=== PATIENT | male | born 1975 | race Caucasian/White ===

== ENCOUNTER 2022-05-21 12:59 | Inpatient (IN) | payer OTHER ==
[2022-05-21 14:15] VITALS: BMI 37.1
[2022-05-21] MEDS ORDERED: MAGNESIUM CITRATE 300 ML BOTTLE PO PRN (15:15)
[2022-05-21] MEDS ORDERED: MAG HYDROX/AL HYDROX/SIMETH 30 ML UNIT-DOSE CUP PO PRN (15:15)
[2022-05-21] MEDS ORDERED: guaiFENesin 200 MG/10 ML 10 ML UNIT-DOSE CUPS PO PRN (15:15)
[2022-05-21] MEDS ORDERED: ACETAMINOPHEN 325 MG TABLET (FP) PO PRN (15:15)
[2022-05-21] MEDS ORDERED: LOPERAMIDE HCL 2 MG CAPSULE PO PRN (15:15)
[2022-05-21] MEDS ORDERED: MAGNESIUM HYDROX 2400MG/30ML ORAL SUSPENSION 30 ML CUP PO PRN (15:15)
[2022-05-21] MEDS: hydrOXYzine PAMOATE 25 MG CAPSULE (FP) PO SCH ×2 (21:19→21:20)
[2022-05-21] MEDS: THIAMINE HCL 100 MG TABLET (FP) PO SCH (21:20)
[2022-05-21] MEDS: MELATONIN 5 MG TABLETS PO SCH (21:20)
[2022-05-21] MEDS ORDERED: TUBERCULIN PPD 5 TU/0.1ML VIAL ID ONE ×2 (21:33→21:40)
[2022-05-22] MEDS ORDERED: methaDONE HCL 10 MG TABLET PO ONE (09:48)
[2022-05-22] MEDS ORDERED: methaDONE 40 MG, methaDONE 10 MG PO ONE (10:15)
[2022-05-22] MEDS ORDERED: methaDONE HCL 40 MG DISPERSABLE TABLET ONE (10:20)
[2022-05-22] MEDS ORDERED: methaDONE HCL 10 MG TABLET ONE (10:20)
[2022-05-22] MEDS: NICOTINE 7 MG/24 HOURS TOPICAL PATCH TD SCH (10:31)
[2022-05-22] MEDS: PRENATAL VITAMINS W/ FOLIC ACID TABLET (FP) PO SCH (10:31)
[2022-05-22 14:23] LABS: HEMATOCRIT 38.7 % (35.4-49); HEMOGLOBIN 13.1 GM/dL (11.7-16.9); MCH 30.4 pg (25.7-33.7); MCHC 33.9 g/dl (32.0-35.9); MEAN CELL VOLUME 89.9 fl (80-96); MEAN PLT VOLUME 8.3 fl (7.5-11.1); PLATELET COUNT 287 10^3/uL (134-434); RDW 12.8 % (11.9-15.9); WHITE BLOOD COUNT 4.8 K/mm3 (4.0-10.0)
[2022-05-22 14:24] LABS: PH,URINE 6.5 (5.0-8.0); URINE APPEARANCE CLEAR; URINE BILIRUBIN NEGATIVE (NEGATIVE); URINE COLOR YELLOW; URINE GLUCOSE (UA) NEGATIVE (NEGATIVE); URINE KETONE NEGATIVE (NEGATIVE); URINE LEUK ESTERASE NEGATIVE (NEGATIVE); URINE NITRITE NEGATIVE (NEGATIVE); URINE PROTEIN NEGATIVE (NEGATIVE); URINE UROBILINOGEN 0.2 mg/dL (0.2-1.0)
[2022-05-22 14:34] LABS: CALCIUM 9.4 mg/dL (8.5-10.1)
[2022-05-22 14:35] LABS: ALBUMIN 3.5 g/dl (3.4-5.0); BLOOD UREA NITROGEN 11.5 mg/dL (7-18)
[2022-05-22 14:38] LABS: CREATININE 1.1 mg/dL (0.55-1.3)
[2022-05-22 14:40] LABS: TOT PROT 7.1 g/dl (6.4-8.2)
[2022-05-22 14:43] LABS: SYPHILIS W/ RPR CONF NON-REACTIVE (NONREACTIVE)
[2022-05-22 14:44] LABS: BILIRUBIN,TOTAL 0.3 mg/dL (0.2-1)
[2022-05-22] MEDS: THIAMINE HCL 100 MG TABLET (FP) PO SCH (21:17)
[2022-05-22] MEDS: MELATONIN 5 MG TABLETS PO SCH (21:17)
[2022-05-23] MEDS ORDERED: methaDONE HCL 10 MG TABLET PO SCH (06:00)
[2022-05-23] MEDS ORDERED: methaDONE HCL 40 MG DISPERSABLE TABLET ONE (06:04)
[2022-05-23] MEDS ORDERED: methaDONE HCL 10 MG TABLET ONE (06:04)
[2022-05-23] MEDS: methaDONE 40 MG, methaDONE 10 MG PO SCH (06:20)
[2022-05-23] MEDS: NICOTINE 7 MG/24 HOURS TOPICAL PATCH TD SCH (09:55)
[2022-05-23] MEDS: PRENATAL VITAMINS W/ FOLIC ACID TABLET (FP) PO SCH (09:56)
[2022-05-23] MEDS: MELATONIN 5 MG TABLETS PO SCH (21:06)
[2022-05-23] MEDS: THIAMINE HCL 100 MG TABLET (FP) PO SCH (21:06)
[2022-05-24] MEDS ORDERED: methaDONE HCL 40 MG DISPERSABLE TABLET ONE (03:20)
[2022-05-24] MEDS ORDERED: methaDONE HCL 10 MG TABLET ONE (03:20)
[2022-05-24] MEDS: methaDONE 40 MG, methaDONE 10 MG PO SCH (06:35)
[2022-05-24] MEDS: PRENATAL VITAMINS W/ FOLIC ACID TABLET (FP) PO SCH (10:20)
[2022-05-24] MEDS: NICOTINE 7 MG/24 HOURS TOPICAL PATCH TD SCH (10:20)
[2022-05-24] MEDS: MELATONIN 5 MG TABLETS PO SCH (21:21)
[2022-05-24] MEDS: THIAMINE HCL 100 MG TABLET (FP) PO SCH (21:21)
[2022-05-25] MEDS ORDERED: methaDONE HCL 40 MG DISPERSABLE TABLET ONE (03:31)
[2022-05-25] MEDS ORDERED: methaDONE HCL 10 MG TABLET ONE (03:31)
[2022-05-25] MEDS: methaDONE 40 MG, methaDONE 10 MG PO SCH (06:30)
[2022-05-25] MEDS: NICOTINE 7 MG/24 HOURS TOPICAL PATCH TD SCH (10:20)
[2022-05-25] MEDS: PRENATAL VITAMINS W/ FOLIC ACID TABLET (FP) PO SCH (10:20)
[2022-05-25] MEDS: THIAMINE HCL 100 MG TABLET (FP) PO SCH (21:09)
[2022-05-25] MEDS: MELATONIN 5 MG TABLETS PO SCH (21:09)
[2022-05-26] MEDS ORDERED: methaDONE HCL 40 MG DISPERSABLE TABLET ONE (03:06)
[2022-05-26] MEDS ORDERED: methaDONE HCL 10 MG TABLET ONE (03:06)
[2022-05-26] MEDS: methaDONE 40 MG, methaDONE 10 MG PO SCH (06:18)
[2022-05-26] MEDS: NICOTINE 7 MG/24 HOURS TOPICAL PATCH TD SCH (10:20)
[2022-05-26] MEDS: PRENATAL VITAMINS W/ FOLIC ACID TABLET (FP) PO SCH (10:20)
[2022-05-26] MEDS: MELATONIN 5 MG TABLETS PO SCH (21:10)
[2022-05-26] MEDS: THIAMINE HCL 100 MG TABLET (FP) PO SCH (21:10)
[2022-05-27] MEDS ORDERED: methaDONE HCL 10 MG TABLET ONE (03:07)
[2022-05-27] MEDS ORDERED: methaDONE HCL 40 MG DISPERSABLE TABLET ONE (03:08)
[2022-05-27] MEDS: methaDONE 40 MG, methaDONE 10 MG PO SCH (06:22)
[2022-05-27] MEDS: PRENATAL VITAMINS W/ FOLIC ACID TABLET (FP) PO SCH (09:51)
[2022-05-27] MEDS: NICOTINE 7 MG/24 HOURS TOPICAL PATCH TD SCH (09:52)
[2022-05-27] MEDS: IBUPROFEN 400 MG TABLET (FP) PO PRN (14:51)
[2022-05-27] MEDS: MELATONIN 5 MG TABLETS PO SCH (21:05)
[2022-05-27] MEDS: THIAMINE HCL 100 MG TABLET (FP) PO SCH (21:05)
[2022-05-27] MEDS: CARBAMIDE PEROXIDE 6.5% OTIC 15 ML BOTTLE AS SCH (21:07)
[2022-05-28] MEDS ORDERED: methaDONE HCL 10 MG TABLET ONE (03:17)
[2022-05-28] MEDS ORDERED: methaDONE HCL 40 MG DISPERSABLE TABLET ONE (03:17)
[2022-05-28] MEDS: methaDONE 40 MG, methaDONE 10 MG PO SCH (06:23)
[2022-05-28] MEDS: CARBAMIDE PEROXIDE 6.5% OTIC 15 ML BOTTLE AS SCH ×2 (10:17→21:10)
[2022-05-28] MEDS: PRENATAL VITAMINS W/ FOLIC ACID TABLET (FP) PO SCH (10:17)
[2022-05-28] MEDS: NICOTINE 7 MG/24 HOURS TOPICAL PATCH TD SCH (10:17)
[2022-05-28] MEDS: MELATONIN 5 MG TABLETS PO SCH (21:10)
[2022-05-28] MEDS: THIAMINE HCL 100 MG TABLET (FP) PO SCH (21:10)
[2022-05-29] MEDS ORDERED: methaDONE HCL 10 MG TABLET ONE (03:19)
[2022-05-29] MEDS ORDERED: methaDONE HCL 40 MG DISPERSABLE TABLET ONE (03:19)
[2022-05-29] MEDS: methaDONE 40 MG, methaDONE 10 MG PO SCH (06:27)
[2022-05-29] MEDS: NICOTINE 7 MG/24 HOURS TOPICAL PATCH TD SCH (11:21)
[2022-05-29] MEDS: CARBAMIDE PEROXIDE 6.5% OTIC 15 ML BOTTLE AS SCH ×2 (11:21→21:16)
[2022-05-29] MEDS: PRENATAL VITAMINS W/ FOLIC ACID TABLET (FP) PO SCH (11:21)
[2022-05-29] MEDS: MELATONIN 5 MG TABLETS PO SCH (21:17)
[2022-05-29] MEDS: THIAMINE HCL 100 MG TABLET (FP) PO SCH (21:17)
[2022-05-30] MEDS ORDERED: methaDONE HCL 10 MG TABLET ONE (06:31)
[2022-05-30] MEDS ORDERED: methaDONE HCL 40 MG DISPERSABLE TABLET ONE (06:32)
[2022-05-30] MEDS: methaDONE 40 MG, methaDONE 10 MG PO SCH (06:32)
[2022-05-30] MEDS: NICOTINE 7 MG/24 HOURS TOPICAL PATCH TD SCH (10:03)
[2022-05-30] MEDS: PRENATAL VITAMINS W/ FOLIC ACID TABLET (FP) PO SCH (10:03)
[2022-05-30] MEDS: CARBAMIDE PEROXIDE 6.5% OTIC 15 ML BOTTLE AS SCH ×2 (10:04→21:12)
[2022-05-30] MEDS: MELATONIN 5 MG TABLETS PO SCH (21:12)
[2022-05-30] MEDS: THIAMINE HCL 100 MG TABLET (FP) PO SCH (21:13)
[2022-05-31] MEDS ORDERED: methaDONE HCL 10 MG TABLET ONE (03:24)
[2022-05-31] MEDS ORDERED: methaDONE HCL 40 MG DISPERSABLE TABLET ONE (03:25)
[2022-05-31] MEDS: methaDONE 40 MG, methaDONE 10 MG PO SCH (06:22)
[2022-05-31] MEDS: PRENATAL VITAMINS W/ FOLIC ACID TABLET (FP) PO SCH (10:06)
[2022-05-31] MEDS: NICOTINE 7 MG/24 HOURS TOPICAL PATCH TD SCH (10:06)
[2022-05-31] MEDS: CARBAMIDE PEROXIDE 6.5% OTIC 15 ML BOTTLE AS SCH (10:06)
[2022-05-31] MEDS: MELATONIN 5 MG TABLETS PO SCH (21:06)
[2022-05-31] MEDS: THIAMINE HCL 100 MG TABLET (FP) PO SCH (21:06)
[2022-06-01] MEDS ORDERED: methaDONE HCL 10 MG TABLET ONE (03:30)
[2022-06-01] MEDS ORDERED: methaDONE HCL 40 MG DISPERSABLE TABLET ONE (03:31)
[2022-06-01] MEDS: methaDONE 40 MG, methaDONE 10 MG PO SCH (06:12)
[2022-06-01] MEDS: PRENATAL VITAMINS W/ FOLIC ACID TABLET (FP) PO SCH (09:46)
[2022-06-01] MEDS: NICOTINE 7 MG/24 HOURS TOPICAL PATCH TD SCH (10:17)
[2022-06-01] MEDS: BENZOCAINE/MENTHOL (CHLORASEPTIC ) LOZENGE MM PRN ×2 (14:26→18:15)
[2022-06-01] MEDS: MELATONIN 5 MG TABLETS PO SCH (21:04)
[2022-06-01] MEDS: THIAMINE HCL 100 MG TABLET (FP) PO SCH (21:05)
[2022-06-02] MEDS ORDERED: methaDONE HCL 10 MG TABLET ONE (03:16)
[2022-06-02] MEDS ORDERED: methaDONE HCL 40 MG DISPERSABLE TABLET ONE (03:16)
[2022-06-02] MEDS: methaDONE 40 MG, methaDONE 10 MG PO SCH (06:08)
[2022-06-02] MEDS: NICOTINE 7 MG/24 HOURS TOPICAL PATCH TD SCH (10:10)
[2022-06-02] MEDS: PRENATAL VITAMINS W/ FOLIC ACID TABLET (FP) PO SCH (10:11)
[2022-06-02] MEDS: BENZOCAINE/MENTHOL (CHLORASEPTIC ) LOZENGE MM PRN (16:56)
[2022-06-02] MEDS: P-EPHED 60MG/TRIPROLIDI 2.5MG TABLET PO PRN (19:19)
[2022-06-02] MEDS: MELATONIN 5 MG TABLETS PO SCH (21:10)
[2022-06-02] MEDS: THIAMINE HCL 100 MG TABLET (FP) PO SCH (21:10)
[2022-06-03] MEDS ORDERED: methaDONE HCL 40 MG DISPERSABLE TABLET ONE (03:17)
[2022-06-03] MEDS ORDERED: methaDONE HCL 10 MG TABLET ONE (03:17)
[2022-06-03] MEDS: methaDONE 40 MG, methaDONE 10 MG PO SCH (06:21)
[2022-06-03] MEDS: BENZOCAINE/MENTHOL (CHLORASEPTIC ) LOZENGE MM PRN ×2 (06:23→10:15)
[2022-06-03] MEDS: PRENATAL VITAMINS W/ FOLIC ACID TABLET (FP) PO SCH (10:14)
[2022-06-03] MEDS: NICOTINE 7 MG/24 HOURS TOPICAL PATCH TD SCH (10:14)
[2022-06-03] MEDS: P-EPHED 60MG/TRIPROLIDI 2.5MG TABLET PO PRN (11:37)
[2022-06-03] MEDS: OXYMETAZOLINE 0.05% NASAL SOLUTION 15 ML BOTTLE NS PRN ×2 (11:38→21:17)
[2022-06-03] MEDS: MELATONIN 5 MG TABLETS PO SCH (21:17)
[2022-06-03] MEDS: THIAMINE HCL 100 MG TABLET (FP) PO SCH (21:17)
[2022-06-04] MEDS ORDERED: methaDONE HCL 40 MG DISPERSABLE TABLET ONE (03:12)
[2022-06-04] MEDS ORDERED: methaDONE HCL 10 MG TABLET ONE (03:12)
[2022-06-04] MEDS: methaDONE 40 MG, methaDONE 10 MG PO SCH (06:04)
[2022-06-04] MEDS: OXYMETAZOLINE 0.05% NASAL SOLUTION 15 ML BOTTLE NS PRN ×2 (06:06→21:19)
[2022-06-04] MEDS: PRENATAL VITAMINS W/ FOLIC ACID TABLET (FP) PO SCH (09:50)
[2022-06-04] MEDS: NICOTINE 7 MG/24 HOURS TOPICAL PATCH TD SCH (09:50)
[2022-06-04] MEDS: IBUPROFEN 400 MG TABLET (FP) PO PRN (15:52)
[2022-06-04] MEDS: MELATONIN 5 MG TABLETS PO SCH (21:18)
[2022-06-04] MEDS: THIAMINE HCL 100 MG TABLET (FP) PO SCH (21:20)
[2022-06-05] MEDS: IBUPROFEN 400 MG TABLET (FP) PO PRN ×2 (04:57→17:50)
[2022-06-05] MEDS ORDERED: methaDONE HCL 40 MG DISPERSABLE TABLET ONE (05:23)
[2022-06-05] MEDS ORDERED: methaDONE HCL 10 MG TABLET ONE (05:23)
[2022-06-05] MEDS: methaDONE 40 MG, methaDONE 10 MG PO SCH (07:02)
[2022-06-05] MEDS: PRENATAL VITAMINS W/ FOLIC ACID TABLET (FP) PO SCH (10:22)
[2022-06-05] MEDS: NICOTINE 7 MG/24 HOURS TOPICAL PATCH TD SCH (10:22)
[2022-06-05] MEDS: OXYMETAZOLINE 0.05% NASAL SOLUTION 15 ML BOTTLE NS PRN (17:54)
[2022-06-05] MEDS: THIAMINE HCL 100 MG TABLET (FP) PO SCH (21:15)
[2022-06-05] MEDS: MELATONIN 5 MG TABLETS PO SCH (21:15)
[2022-06-05] MEDS: P-EPHED 60MG/TRIPROLIDI 2.5MG TABLET PO PRN (21:16)
[2022-06-06] MEDS ORDERED: methaDONE HCL 10 MG TABLET ONE (06:17)
[2022-06-06] MEDS ORDERED: methaDONE HCL 40 MG DISPERSABLE TABLET ONE (06:17)
[2022-06-06] MEDS: methaDONE 40 MG, methaDONE 10 MG PO SCH (06:17)
[2022-06-06] MEDS: NICOTINE 7 MG/24 HOURS TOPICAL PATCH TD SCH (09:40)
[2022-06-06] MEDS: PRENATAL VITAMINS W/ FOLIC ACID TABLET (FP) PO SCH (09:40)
[2022-06-06] MEDS: OXYMETAZOLINE 0.05% NASAL SOLUTION 15 ML BOTTLE NS PRN ×2 (09:42→19:54)
[2022-06-06] MEDS ORDERED: COLLOIDAL OATMEAL 1 BAR EACH TP PRN (11:30)
[2022-06-06] MEDS: IBUPROFEN 400 MG TABLET (FP) PO PRN (19:52)
[2022-06-06] MEDS: MELATONIN 5 MG TABLETS PO SCH (21:18)
[2022-06-06] MEDS: THIAMINE HCL 100 MG TABLET (FP) PO SCH (21:19)
[2022-06-07] MEDS ORDERED: methaDONE HCL 40 MG DISPERSABLE TABLET ONE (04:50)
[2022-06-07] MEDS ORDERED: methaDONE HCL 10 MG TABLET ONE (04:50)
[2022-06-07] MEDS: methaDONE 40 MG, methaDONE 10 MG PO SCH (06:16)
[2022-06-07] MEDS: OXYMETAZOLINE 0.05% NASAL SOLUTION 15 ML BOTTLE NS PRN ×2 (06:17→23:06)
[2022-06-07] MEDS: NICOTINE 7 MG/24 HOURS TOPICAL PATCH TD SCH (09:46)
[2022-06-07] MEDS: PRENATAL VITAMINS W/ FOLIC ACID TABLET (FP) PO SCH (09:46)
[2022-06-07] MEDS: IBUPROFEN 400 MG TABLET (FP) PO PRN (16:47)
[2022-06-07] MEDS: MELATONIN 5 MG TABLETS PO SCH (21:23)
[2022-06-07] MEDS: THIAMINE HCL 100 MG TABLET (FP) PO SCH (21:23)
[2022-06-08] MEDS ORDERED: methaDONE HCL 10 MG TABLET ONE (03:25)
[2022-06-08] MEDS ORDERED: methaDONE HCL 40 MG DISPERSABLE TABLET ONE (03:26)
[2022-06-08] MEDS: methaDONE 40 MG, methaDONE 10 MG PO SCH (06:10)
[2022-06-08] MEDS: OXYMETAZOLINE 0.05% NASAL SOLUTION 15 ML BOTTLE NS PRN (10:18)
[2022-06-08] MEDS: NICOTINE 7 MG/24 HOURS TOPICAL PATCH TD SCH (10:20)
[2022-06-08] MEDS: PRENATAL VITAMINS W/ FOLIC ACID TABLET (FP) PO SCH (10:20)
[2022-06-08] MEDS: IBUPROFEN 400 MG TABLET (FP) PO PRN (10:21)
[2022-06-08] MEDS: THIAMINE HCL 100 MG TABLET (FP) PO SCH (21:05)
[2022-06-08] MEDS: MELATONIN 5 MG TABLETS PO SCH (21:05)
[2022-06-09] MEDS ORDERED: methaDONE HCL 10 MG TABLET ONE (03:48)
[2022-06-09] MEDS ORDERED: methaDONE HCL 40 MG DISPERSABLE TABLET ONE (03:48)
[2022-06-09] MEDS: methaDONE 40 MG, methaDONE 10 MG PO SCH (06:10)
[2022-06-09] MEDS: NICOTINE 7 MG/24 HOURS TOPICAL PATCH TD SCH (10:35)
[2022-06-09] MEDS: PRENATAL VITAMINS W/ FOLIC ACID TABLET (FP) PO SCH (10:35)
[2022-06-09] MEDS: MELATONIN 5 MG TABLETS PO SCH (21:19)
[2022-06-09] MEDS: THIAMINE HCL 100 MG TABLET (FP) PO SCH (21:19)
[2022-06-10] MEDS ORDERED: methaDONE HCL 10 MG TABLET ONE (03:10)
[2022-06-10] MEDS ORDERED: methaDONE HCL 40 MG DISPERSABLE TABLET ONE (03:10)
[2022-06-10] MEDS: methaDONE 40 MG, methaDONE 10 MG PO SCH (06:16)
[2022-06-10] MEDS: IBUPROFEN 400 MG TABLET (FP) PO PRN (09:05)
[2022-06-10] MEDS: NICOTINE 7 MG/24 HOURS TOPICAL PATCH TD SCH (10:10)
[2022-06-10] MEDS: PRENATAL VITAMINS W/ FOLIC ACID TABLET (FP) PO SCH (10:10)
[2022-06-10] MEDS: MELATONIN 5 MG TABLETS PO SCH (21:04)
[2022-06-10] MEDS: THIAMINE HCL 100 MG TABLET (FP) PO SCH (21:05)
[2022-06-11] MEDS ORDERED: methaDONE HCL 10 MG TABLET ONE (03:12)
[2022-06-11] MEDS ORDERED: methaDONE HCL 40 MG DISPERSABLE TABLET ONE (03:13)
[2022-06-11] MEDS: methaDONE 40 MG, methaDONE 10 MG PO SCH (06:14)
[2022-06-11] MEDS: NICOTINE 7 MG/24 HOURS TOPICAL PATCH TD SCH (09:49)
[2022-06-11] MEDS: IBUPROFEN 400 MG TABLET (FP) PO PRN (09:49)
[2022-06-11] MEDS: PRENATAL VITAMINS W/ FOLIC ACID TABLET (FP) PO SCH (09:50)
[2022-06-11 10:57] LABS: ALBUMIN 3.2 g/dl (3.4-5.0); BLOOD UREA NITROGEN 16.5 mg/dL (7-18); CALCIUM 9.9 mg/dL (8.5-10.1)
[2022-06-11 11:00] LABS: CREATININE 1.2 mg/dL (0.55-1.3)
[2022-06-11 11:01] LABS: BILIRUBIN,TOTAL 0.4 mg/dL (0.2-1)
[2022-06-11 11:02] LABS: TOT PROT 8.1 g/dl (6.4-8.2)
[2022-06-11] MEDS: MELATONIN 5 MG TABLETS PO SCH (21:28)
[2022-06-11] MEDS: THIAMINE HCL 100 MG TABLET (FP) PO SCH (21:28)
[2022-06-12] MEDS ORDERED: methaDONE HCL 10 MG TABLET ONE (03:06)
[2022-06-12] MEDS ORDERED: methaDONE HCL 40 MG DISPERSABLE TABLET ONE (03:07)
[2022-06-12] MEDS: methaDONE 40 MG, methaDONE 10 MG PO SCH (06:16)
[2022-06-12] MEDS: IBUPROFEN 400 MG TABLET (FP) PO PRN (08:27)
[2022-06-12] MEDS: PRENATAL VITAMINS W/ FOLIC ACID TABLET (FP) PO SCH (09:59)
[2022-06-12] MEDS: NICOTINE 7 MG/24 HOURS TOPICAL PATCH TD SCH (09:59)
[2022-06-12] MEDS: THIAMINE HCL 100 MG TABLET (FP) PO SCH (21:06)
[2022-06-12] MEDS: MELATONIN 5 MG TABLETS PO SCH (21:06)
[2022-06-12] MEDS: P-EPHED 60MG/TRIPROLIDI 2.5MG TABLET PO PRN (21:59)
[2022-06-13] MEDS ORDERED: methaDONE HCL 10 MG TABLET ONE (06:29)
[2022-06-13] MEDS ORDERED: methaDONE HCL 40 MG DISPERSABLE TABLET ONE (06:29)
[2022-06-13] MEDS: methaDONE 40 MG, methaDONE 10 MG PO SCH (06:31)
[2022-06-13] MEDS: PRENATAL VITAMINS W/ FOLIC ACID TABLET (FP) PO SCH (10:35)
[2022-06-13] MEDS: NICOTINE 7 MG/24 HOURS TOPICAL PATCH TD SCH (10:35)
[2022-06-13] MEDS: IBUPROFEN 400 MG TABLET (FP) PO PRN (11:57)
[2022-06-13] MEDS: MELATONIN 5 MG TABLETS PO SCH (21:04)
[2022-06-13] MEDS: THIAMINE HCL 100 MG TABLET (FP) PO SCH (21:04)
[2022-06-14] MEDS ORDERED: methaDONE HCL 40 MG DISPERSABLE TABLET ONE (03:32)
[2022-06-14] MEDS ORDERED: methaDONE HCL 10 MG TABLET ONE (03:32)
[2022-06-14] MEDS: methaDONE 40 MG, methaDONE 10 MG PO SCH (06:07)
[2022-06-14] MEDS: IBUPROFEN 400 MG TABLET (FP) PO PRN (09:51)
[2022-06-14] MEDS: PRENATAL VITAMINS W/ FOLIC ACID TABLET (FP) PO SCH (09:51)
[2022-06-14] MEDS: NICOTINE 7 MG/24 HOURS TOPICAL PATCH TD SCH (09:53)
[2022-06-14] MEDS: MELATONIN 5 MG TABLETS PO SCH (21:17)
[2022-06-14] MEDS: THIAMINE HCL 100 MG TABLET (FP) PO SCH (21:17)
[2022-06-15] MEDS ORDERED: methaDONE HCL 10 MG TABLET ONE (03:07)
[2022-06-15] MEDS ORDERED: methaDONE HCL 40 MG DISPERSABLE TABLET ONE (03:07)
[2022-06-15] MEDS: methaDONE 40 MG, methaDONE 10 MG PO SCH (06:14)
[2022-06-15] MEDS: NICOTINE 7 MG/24 HOURS TOPICAL PATCH TD SCH (10:30)
[2022-06-15] MEDS: PRENATAL VITAMINS W/ FOLIC ACID TABLET (FP) PO SCH (10:30)
[2022-06-15] MEDS: IBUPROFEN 400 MG TABLET (FP) PO PRN (10:32)
[2022-06-15] MEDS: THIAMINE HCL 100 MG TABLET (FP) PO SCH (20:59)
[2022-06-15] MEDS: MELATONIN 5 MG TABLETS PO SCH (20:59)
[2022-06-16] MEDS ORDERED: methaDONE HCL 10 MG TABLET ONE (03:16)
[2022-06-16] MEDS ORDERED: methaDONE HCL 40 MG DISPERSABLE TABLET ONE (03:16)
[2022-06-16] MEDS: methaDONE 40 MG, methaDONE 10 MG PO SCH (06:12)
[2022-06-16] MEDS: NICOTINE 7 MG/24 HOURS TOPICAL PATCH TD SCH (09:57)
[2022-06-16] MEDS: PRENATAL VITAMINS W/ FOLIC ACID TABLET (FP) PO SCH (09:58)
[2022-06-16] MEDS: IBUPROFEN 400 MG TABLET (FP) PO PRN (09:59)
[2022-06-16] MEDS: THIAMINE HCL 100 MG TABLET (FP) PO SCH (21:11)
[2022-06-16] MEDS: MELATONIN 5 MG TABLETS PO SCH (21:11)
[2022-06-17] MEDS: methaDONE 40 MG, methaDONE 10 MG PO SCH (06:10)
[2022-06-17] MEDS: IBUPROFEN 400 MG TABLET (FP) PO PRN (10:07)
[2022-06-17] MEDS: PRENATAL VITAMINS W/ FOLIC ACID TABLET (FP) PO SCH (10:08)
[2022-06-17] MEDS: NICOTINE 7 MG/24 HOURS TOPICAL PATCH TD SCH (10:08)
[2022-06-17] MEDS: MELATONIN 5 MG TABLETS PO SCH (21:01)
[2022-06-17] MEDS: THIAMINE HCL 100 MG TABLET (FP) PO SCH (21:01)
[2022-06-18] MEDS: methaDONE 40 MG, methaDONE 10 MG PO SCH (06:20)
[2022-06-18 07:17] VITALS: BP 132/86; PULSE 80; RESP 18; TEMP 98.2
[2022-06-18] MEDS: NICOTINE 7 MG/24 HOURS TOPICAL PATCH TD SCH (09:41)
[2022-06-18] MEDS: PRENATAL VITAMINS W/ FOLIC ACID TABLET (FP) PO SCH (09:41)
== END 2022-06-18 09:33 | disposition home or self-care (01) | DRG 895 ==
LOC: YASAS 12:59 → Y3W 20:02 → Y3E 21:02
PROVIDERS: ADMIT Allergy & Immunology; ATTEND Psychiatry & Neurology Pain Medicine
PROC: HZ42ZZZ Group Counseling for Substance Abuse Treatment, Cognitive-Behavioral (ICD-10-PCS; principal; 2022-05-21)
DX: F14.20 Cocaine dependence, uncomplicated (principal); F11.20 Opioid dependence, uncomplicated; F17.210 Nicotine dependence, cigarettes, uncomplicated; I44.0 Atrioventricular block, first degree; E78.5 Hyperlipidemia, unspecified; H61.23 Impacted cerumen, bilateral; R07.0 Pain in throat; R09.81 Nasal congestion; R00.0 Tachycardia, unspecified; R94.31 Abnormal electrocardiogram [ECG] [EKG]
CPT/HCPCS: 36415; 80053; 81003; 82962; 84132; 85027; 86780; 86803; 93005; 93010; C9803-CS; U0003; U0005